=== PATIENT | female | born 1930 | race Caucasian/White ===

== ENCOUNTER 2016-07-26 07:48 | Inpatient (IN) | payer OTHER ==
[~2016-07-26] VITALS: Ht 157.5 cm; Wt 68.0 kg
--- NOTE | 2016-07-26 07:48 | NUR ---
Arrived via BLS ambulance for right knee deformity S/P fall S/T trip over dog.Patient to ER bed 5 to gown for evaluation. Side rails up. Report given to Shirley FREY.
--- NOTE | 2016-07-26 07:49 | NUR ---
ER Dr. Dominguez at bedside examining patient.
--- NOTE | 2016-07-26 07:50 | NUR ---
Patient remains in air soft splint placed by EMS to stablize site of injury.
[2016-07-26 07:55] VITALS: BP 182/71; PULSE 63; RESP 16; TEMP 97.1; O2SAT 97
[2016-07-26] MEDS ORDERED: NACL 0.9% 1,000 ML IV SCH (08:00)
[2016-07-26] MEDS ORDERED: ONDANSETRON HCL 4 MG/2 ML VIAL IVP ONE (08:00)
[2016-07-26] MEDS ORDERED: MORPHINE 4 MG/ML INJ. SYRINGE IVP ONE (08:15)
--- NOTE | 2016-07-26 08:21 | NUR ---
medicated per MD's order. scanner is not working, verified with pt's two identifier
--- NOTE | 2016-07-26 08:42 | NUR ---
# 16 FR Villalobos catheter with use of sterile technique. Immediate return of 50 cc urine noted. Bedside drainage bag placed below level of bladder. Urine sample collected and sent to lab. Pt tolerated procedure .
[2016-07-26 08:48] LABS: BASOPHILS % (AUTO) 0.2 % (0.0-2.0); EOSINOPHILS % (AUTO) 0.4 % (0.0-4.0); HEMATOCRIT 37.6 % (36-48); HEMOGLOBIN 12.3 g/dL (12.0-16.0); LYMPHOCYTES # (AUTO) 1.5 K/uL (1.0-5.5); LYMPHOCYTES % (AUTO) 13.8 % (20.5-51.5); MEAN CORPUSCULAR HEMOGLOBIN 28 pg (27-31); MEAN CORPUSCULAR HGB CONC 33 % (32-36); MEAN CORPUSCULAR VOLUME 86 fL (79.0-98.0); MONOCYTES # (AUTO) 0.8 K/uL (0.0-1.0); MONOCYTES % (AUTO) 7.1 % (1.7-9.3); NEUTROPHILS # (AUTO) 8.6 K/uL (1.8-7.7); NEUTROPHILS % (AUTO) 78.5 % (40.0-70.0); PLATELET COUNT (AUTO) 235 K/uL (130-430); RED BLOOD CELL COUNT(AUTO) 4.37 MIL/uL (4.2-6.2); RED CELL DISTRIBUTION WIDTH 15.1 % (9.0-15.0); WHITE BLOOD COUNT (AUTO) 10.9 K/uL (4.8-10.8)
[2016-07-26 08:49] LABS: BILIRUBIN,URINE NEGATIVE (NEGATIVE); BLOOD, URINE NEGATIVE (NEGATIVE); CLARITY/URINE CLEAR (CLEAR); COLOR,URINE YELLOW (YELLOW); GLUCOSE,URINE NEGATIVE (NEGATIVE); KETONES,URINE NEGATIVE (NEGATIVE); LEUKOCYTE ESTERASE ,URINE NEGATIVE (NEGATIVE); NITRITE, URINE NEGATIVE (NEGATIVE); PH,URINE 6.5 (5.0-8.0); PROTEIN URINE TRACE (NEGATIVE); UROBILINOGEN,URINE 0.2 (0.2-1.0)
[2016-07-26 08:57] LABS: ANION GAP 2 (5-15); CALCIUM 8.9 mg/dL (8.4-11.0); CHLORIDE 107 mmol/L (98-107); CREATININE 0.87 mg/dL (0.55-1.30); GLUCOSE 129 mg/dL (70-99); POTASSIUM 3.9 mmol/L (3.5-5.1); SODIUM SERUM 140 mmol/L (136-145); UREA NITROGEN, BLOOD 18 mg/dL (8-21)
[2016-07-26 09:01] LABS: ALANINE AMINOTRANSFERASE 23 U/L (12-78); ALBUMIN 3.3 g/dL (3.4-4.8); ASPARTATE AMINOTRANSFERASE 19 U/L (10-37); TOTAL BILIRUBIN 0.3 mg/dL (0.0-1.0); TOTAL PROTEIN, SERUM 7.1 g/dL (6.4-8.3)
[2016-07-26 09:02] LABS: PROTHROMBIN TIME 10.8 SECS (9.5-12.5)
[2016-07-26 09:05] LABS: BACTERIA,URINE RARE /HPF (None Seen); MUCUS,URINE 1+ /LPF (None Seen); RBC,URINE 0-3 /HPF (0-3); WBC,URINE 0-3 /HPF (0-3)
--- NOTE | 2016-07-26 09:11 | NUR ---
pain relieved,resting in bed.
--- NOTE | 2016-07-26 10:00 | NUR ---
right knee immobilizer place.pt tolerated well
--- NOTE | 2016-07-26 10:01 | NUR ---
BEAR PA, DR SALGADO SALES HUNTER FOR DR FLORES RE: FRACTURED FEMUR. SPOKE TO VILMA
--- NOTE | 2016-07-26 10:03 | NUR ---
Patient will be admitted to [facility]. Admitted to ms unit. Will go to room . Belongings list completed. Summary report printed. Report given to .
--- NOTE | 2016-07-26 10:18 | NUR ---
ADMISSION NOTE Received patient from ER via romulo, received report from NEGRITO FREY. Patient admitted with diagnosis of RIGHT FEMUR FRACTURE. Patient oriented to hospital routine, call light, toileting and safety-patient verbalized understanding.
[2016-07-26 10:32] VITALS: BP 174/72; PULSE 68; RESP 20; TEMP 98.8; O2SAT 95
[2016-07-26] MEDS ORDERED: cefTRIAXone 1 GM IVPB PREMIX 50 ML IV ONE (10:45)
[2016-07-26] MEDS ORDERED: SIMV20TA6 PO (10:45)
[2016-07-26] MEDS ORDERED: UBID1CAP53 PO (10:45)
[2016-07-26] MEDS ORDERED: METO100T3 PO (10:45)
[2016-07-26] MEDS ORDERED: MULT-1164 PO (10:45)
[2016-07-26] MEDS ORDERED: ALLO100T PO (10:45)
[2016-07-26] MEDS ORDERED: OMEG1CAP97 PO (10:45)
[2016-07-26] MEDS ORDERED: FELO5TAB4 PO (10:45)
[2016-07-26] MEDS ORDERED: HYDR12.55 (10:45)
--- NOTE | 2016-07-26 12:15 | NUR ---
NOTE PATIENT CAME FROM ER FOR RIGHT FEMUR FRACTURE FROM A MECHANICAL FALL. PATIENT IS ALERT AND ORIENTED AND ABLE TO COMMUNICATE NEEDS TO STAFF. PATIENT'S BED IS IN LOWEST POSITION AND BED ALARM IS ON. PATIENT IS EDUCATED NOT TO GET UP UNASSISTED. CALL LIGHT IS WITHIN IN REACH AND ADMISSION WAS COMPLETED. WILL CONTINUE TO MONITOR.
[2016-07-26] MEDS: D5NS 1,000 ML IV SCH (12:22)
[2016-07-26] MEDS ORDERED: ENOXAPARIN SODIUM 40 MG/0.4 ML SYRINGE SUBCUT ONE (14:15)
--- NOTE | 2016-07-26 14:45 | NUR ---
NOTE DR WILEY WAS IN TO SEE THE PATIENT AND WANTS TO HAVE TO SURGERY TOMORROW AROUND NOON. PATIENT IS AWARE AND IS ABLE TO EAT UNTIL MIDNIGHT. CALL LIGHT IS WITHIN REACH. NO NOTED COMPLAINTS OF PAIN, NO NOTED DISTRESS, DISCOMFORT OR SOB. WILL CONTINUE TO MONITOR.
--- NOTE | 2016-07-26 15:02 | NUR ---
CALLED ATTENDING MD DR CONNOR, RE: DIET ORDER. SPOKE TO GRAHAM
[2016-07-26 16:40] VITALS: BP 155/75; PULSE 71; RESP 16; TEMP 98.8; O2SAT 95
--- NOTE | 2016-07-26 17:00 | NUR ---
NOTE PATIENT IS RESTING IN BED COMFORTABLY WITH NO COMPLAINTS OF PAIN, NO NOTED DISTRESS, DISCOMFORT OR SOB. BED IS IN LOWEST POSITION AND CALL LIGHT IS WITHIN REACH. BED ALARM IS ON AND WILL CONTINUE TO MONITOR.
--- NOTE | 2016-07-26 18:55 | NUR ---
CLOSING NOTE PATIENT IS RESTING IN BED COMFORTABLY WITH NO COMPLAINTS OF PAIN, NO NOTED DISTRESS, DISCOMFORT OR SOB. PATIENT IS AWARE OF SURGERY TOMORROW AND KNOWS THAT SHE NEEDS TO BE NPO AFTER MIDNIGHT. CALL LIGHT IS WITHIN REACH AND BED ALARM IS ON AND WILL GIVE REPORT TO NIGHT NURSE
[2016-07-26 20:02] VITALS: BP 135/64; PULSE 69; RESP 18; TEMP 98.4; O2SAT 95
--- NOTE | 2016-07-26 20:10 | NUR ---
Opening Note Report received from the day shift RN. Patient is in stable condition. Has a fractured right femur with immobilizer on. Call light is within reach. Instructed to use it whenever in need of assistance. IV is on the left wrist running D5NS@70ml/hr. Instructed to please call RN when in need of pain medication. Will get order from MD upon patient's request.
--- NOTE | 2016-07-26 23:10 | NUR ---
Spoke with Spoke with Dr. Ferguson, who is covering for Dr. Garcia. Received an order for Morhpine 2mg IV qh4 PRN for pain.
[2016-07-26] MEDS: MORPHINE 2 MG/ML INJ. SYRINGE IVP PRN (23:26)
--- NOTE | 2016-07-26 23:35 | NUR ---
Pain medication Medicated the patient with Morphine 2mg IVP for 6/10 right leg pain. Will reassess.
--- NOTE | 2016-07-27 00:31 | NUR ---
Rounds Patient is currently resting in bed. Pain level is currently 3/10 on the right leg. Call light is within reach. Instructed to use it whenever in need of assistance.
--- NOTE | 2016-07-27 02:38 | NUR ---
Rounds Patient is currently sleeping in bed. No signs of distress noted. Call light is within reach.
[2016-07-27] MEDS: D5NS 1,000 ML IV SCH (02:59)
--- NOTE | 2016-07-27 04:37 | NUR ---
Rounds Patient is resting in bed. No signs of distress noted. Call light is within reach.
[2016-07-27 04:42] VITALS: BP 140/72; PULSE 72; RESP 17; TEMP 98.6; O2SAT 98
[2016-07-27] MEDS: MORPHINE 2 MG/ML INJ. SYRINGE IVP PRN ×2 (05:45→18:44)
--- NOTE | 2016-07-27 06:25 | NUR ---
Closing Note Patient is currently resting in bed. IV is on the LAC 20g running D5NS@70ml/hr. Villalobos catheter is draining yellow, clear urine. Patient is scheduled for surgery today at 1115. Patient is aware and was advised not to drink or eat anything. Will give report to the oncoming shift.
[2016-07-27 08:00] VITALS: BP 151/79; PULSE 75; RESP 18; TEMP 99; O2SAT 95
--- NOTE | 2016-07-27 08:00 | NUR ---
NOTE PT RESTING IN BED WITH RIGHT LEG IMMOBILIZER. IV IN LEFT HAND INTACT AND PATENT AT THIS TIME INFUSING IVF'S. TELE UNIT ATTACHED AND TRANSMITTING WELL. PT HAS THRASHER CATHETER INTACT AND DRAINING WELL. NO SOB/RESP DISTRESS OR DISCOMFORT NOTED AT THIS TIME. PT HAS BEEN NPO SINCE MIDNIGHT. NO NEEDS NOTED. CALL LIGHT WITHIN REACH.
--- NOTE | 2016-07-27 08:29 | NUR ---
Nutrition Update Ozzie Scale 14 noted. Pt admitted for femur fracture. Diet: NPO BMI: 27.4 kg/m2 RD to follow per nutrition care standards.
[2016-07-27] MEDS: SIMVASTATIN 20 MG TABLET PO SCH (09:00)
[2016-07-27] MEDS: FELODIPINE 5 MG TAB.SR.24H (PLENDIL) PO SCH (09:00)
[2016-07-27] MEDS ORDERED: POLYMYXIN 500,000/BACIT.10,000 UNITS in NS IRR 1 L IR ONE ×2 (10:42→13:00)
[2016-07-27] MEDS ORDERED: BUPIVACAINE /EPINEPHRINE/PF 0.5% 30 ML VIAL INJ ONE (10:46)
[2016-07-27] MEDS ORDERED: MIDAZOLAM HCL 5 MG/5 ML VIAL IVP ONE (10:46)
[2016-07-27] MEDS ORDERED: fentaNYL CITRATE/PF 100 MCG/2 ML AMP IVP ONE (10:46)
[2016-07-27] MEDS ORDERED: KETOROLAC TROMETHAMINE 30 MG VIAL IVP ONE (10:46)
[2016-07-27] MEDS ORDERED: SEVOFLURANE 15 MIN GAS INH ONE (10:46)
[2016-07-27] MEDS ORDERED: PROPOFOL 200MG/ 20ML VIAL (DIPRIVAN) IV ONE (10:46)
[2016-07-27] MEDS ORDERED: VANCOMYCIN HCL 1000 MG/VIAL IV ONE (10:46)
[2016-07-27] MEDS ORDERED: LR 1,000 ML IV.SOLN IV ONE (10:46)
[2016-07-27] MEDS ORDERED: ROCURONIUM BROMIDE 10 MG/ML (ZEMURON) IV ONE (10:46)
[2016-07-27] MEDS ORDERED: CEFAZOLIN 2 GM IVPB PREMIX 50 ML IV ONE (10:46)
--- NOTE | 2016-07-27 10:50 | NUR ---
NOTE PT WAS GIVEN CHG BATH AROUND 10AM. PT NOW OFF THE FLOOR VIA BED TO SURGERY.
[2016-07-27] MEDS ORDERED: METOCLOPRAMIDE HCL 10 MG/2 ML VIAL ONE (11:35)
[2016-07-27] MEDS ORDERED: LR 1,000 ML IV ONE (12:21)
[2016-07-27 12:29] VITALS: BP 181/77; PULSE 70; RESP 17; TEMP 98.9; O2SAT 97
[2016-07-27] MEDS ORDERED: NALBUPHINE HCL 10 MG/ML AMP IVP PRN (12:30)
[2016-07-27] MEDS ORDERED: fentaNYL CITRATE/PF 100 MCG/2 ML AMP IVP PRN (12:30)
[2016-07-27] MEDS ORDERED: DIPHENHYDRAMINE INJ 50 MG/ML VIAL IVP PRN (12:30)
[2016-07-27] MEDS ORDERED: ONDANSETRON HCL 4 MG/2 ML VIAL IVP PRN ×2 (12:30)
[2016-07-27] MEDS ORDERED: NALOXONE HCL 0.4 MG/ML AMP (NARCAN) IVP PRN (12:30)
[2016-07-27] MEDS ORDERED: ePHEDrine sulfate 50 MG/ML VIAL IVP PRN (12:30)
[2016-07-27 14:50] VITALS: BP 141/53; PULSE 68; PULSE 69; RESP 16; RESP 18; TEMP 97.4; O2SAT 93; O2SAT 94
--- NOTE | 2016-07-27 15:08 | NUR ---
NOTE PT ARRIVED BACK TO FLOOR AT 1450 VIA BED. NO O2 OR SOB/RESP DISTRESS OR RIGHT LEG PAIN/DISCOMFORT NOTED AT THIS TIME. RIGHT LEG DRESSING CDI WITH IMMOBILIZER ON AT THIS TIME. PT HAS HEMOVAC FROM RIGHT LEG INCISION SITE. THRASHER CATHETER INTACT AND DRAINING WELL AT THIS TIME. IVF'S INFUSING THROUGH LEFT HAND IV SITE. PAIN AT 3/10 ON PAIN SCALE OF 0/10. PT HAS LEFT LEG SCD ON AT THIS TIME. PT'S FAMILY CAME TO BEDSIDE AT THIS TIME. PT IS AAOX4 AT THIS TIME. CALL LIGHT WITHIN REACH.
--- NOTE | 2016-07-27 18:00 | NUR ---
NOTE PT RESTING IN BED DRINKING HER CHICKEN BROTH. NO N/V NOTED AT THIS TIME. TOLERATING BROTH WELL. PT DID NOT WANT ANYTHING ELSE AT THIS TIME. RIGHT LEG DRESSING CDI AND RIGHT LEG IN BRACE. NEURO CHECKS IN RIGHT FOOT WNL ALL SHIFT. PEDAL PULSES PALPABLE. IVF'S INFUSING THROUGH LEFT AC IV SITE. NO NEEDS NOTED. NO SOB/RESP DISTRESS NOTED. PT WAS MAINTAINED WITH SAFETY PRECAUTIONS ALL SHIFT. CALL LIGHT WITHIN REACH.
[2016-07-27 18:29] VITALS: BP 141/69; PULSE 82; RESP 16; TEMP 99.3; O2SAT 95
[2016-07-27 20:03] VITALS: BP 138/71; PULSE 95; RESP 18; TEMP 99.8; O2SAT 94
--- NOTE | 2016-07-27 20:03 | NUR ---
Opening Note Report received from the day shift RN. Patient is in stable condition. Patient stated IV on left AC is leaking is concerned about not receiving her pain medication administered by the day shift RN. Will restart a new IV and will follow up with MD regarding a one time dose of pain medication. Right leg dressing and immobilizer are in place. Hemovac is draining bloody drainage. Pulses are palpable on the right foot patient is able to move all of her toes on the right foot.
[2016-07-27] MEDS ORDERED: MORPHINE 2 MG/ML INJ. SYRINGE IVP ONE (21:45)
[2016-07-27] MEDS: ceFAZolin SODIUM 2 GM in D5W 100 ML IV SCH (21:56)
--- NOTE | 2016-07-27 22:10 | NUR ---
Rounds Patient is resting in bed. New IV is on the right hand 22g. Medicated with a one time dose of Morphine 2mg. Will reassess.
[2016-07-28] VITALS: BP_SYST 132; BP_SYST 138; BP_DIAS 72; BP_DIAS 78; PULSE 89; PULSE 92; RESP 17; RESP 18; TEMP 98.9; TEMP 99.2; O2SAT 95; O2SAT 96
--- NOTE | 2016-07-28 00:15 | NUR ---
Rounds Patient is resting in bed. No signs of distress noted. Call light is within reach. Instructed to use it whenever in need of assistance.
--- NOTE | 2016-07-28 02:10 | NUR ---
Rounds Patient is sleeping in bed. Call light is within reach.
[2016-07-28] MEDS: MORPHINE 2 MG/ML INJ. SYRINGE IVP PRN (03:33)
[2016-07-28 04:00] VITALS: BP 132/78; PULSE 89; RESP 17; TEMP 99.2; O2SAT 96
--- NOTE | 2016-07-28 04:30 | NUR ---
Rounds Patient is currently sleeping in bed. No signs of distress noted. Call light is within reach.
[2016-07-28] MEDS: D5NS 1,000 ML IV SCH ×2 (05:51→06:24)
[2016-07-28] MEDS: ceFAZolin SODIUM 2 GM in D5W 100 ML IV SCH (05:53)
--- NOTE | 2016-07-28 06:20 | NUR ---
Closing Note Patient is in stable condition. IV is on the right hand running D5NS@70ml/hr. Call light is within reach. Right lower extremity hemovac is draining bloody drainage. Villalobos catheter is drainage yellow urine. Will endorse to day shift to follow up with a diet order.
[2016-07-28 07:32] LABS: ALANINE AMINOTRANSFERASE 21 U/L (12-78); ALBUMIN 2.6 g/dL (3.4-4.8); ANION GAP 7 (5-15); ASPARTATE AMINOTRANSFERASE 46 U/L (10-37); CALCIUM 8.6 mg/dL (8.4-11.0); CHLORIDE 103 mmol/L (98-107); CREATININE 0.73 mg/dL (0.55-1.30); GLUCOSE 90 mg/dL (70-99); POTASSIUM 4.1 mmol/L (3.5-5.1); SODIUM SERUM 137 mmol/L (136-145); TOTAL BILIRUBIN 0.4 mg/dL (0.0-1.0); UREA NITROGEN, BLOOD 9 mg/dL (8-21)
[2016-07-28 08:00] VITALS: BP 132/82; PULSE 82; RESP 14; TEMP 97.3; O2SAT 99
[2016-07-28 08:24] LABS: BASOPHILS # (AUTO) 0.1 K/uL (0.0-0.2); BASOPHILS % (AUTO) 0.4 % (0.0-2.0); EOSINOPHILS % (AUTO) 0.3 % (0.0-4.0); HEMATOCRIT 29.1 % (36-48); HEMOGLOBIN 9.8 g/dL (12.0-16.0); LYMPHOCYTES # (AUTO) 1.3 K/uL (1.0-5.5); LYMPHOCYTES % (AUTO) 8.2 % (20.5-51.5); MEAN CORPUSCULAR HEMOGLOBIN 28 pg (27-31); MEAN CORPUSCULAR HGB CONC 34 % (32-36); MEAN CORPUSCULAR VOLUME 84 fL (79.0-98.0); MONOCYTES # (AUTO) 1.1 K/uL (0.0-1.0); MONOCYTES % (AUTO) 7.4 % (1.7-9.3); NEUTROPHILS # (AUTO) 12.9 K/uL (1.8-7.7); NEUTROPHILS % (AUTO) 83.7 % (40.0-70.0); PLATELET COUNT (AUTO) 226 K/uL (130-430); RED BLOOD CELL COUNT(AUTO) 3.47 MIL/uL (4.2-6.2); RED CELL DISTRIBUTION WIDTH 15.3 % (9.0-15.0)
[2016-07-28 08:25] LABS: WHITE BLOOD COUNT (AUTO) 15.4 K/uL (4.8-10.8)
[2016-07-28] MEDS: FELODIPINE 5 MG TAB.SR.24H (PLENDIL) PO SCH (08:30)
[2016-07-28] MEDS: SIMVASTATIN 20 MG TABLET PO SCH (08:30)
[2016-07-28] MEDS: ENOXAPARIN SODIUM 40 MG/0.4 ML SYRINGE SUBCUT SCH (08:30)
--- NOTE | 2016-07-28 08:30 | NUR ---
DR DA SILVA IN TO SEE PATIENT. ORDERS FOR CLEAR LIQUID DIET GIVEN
--- NOTE | 2016-07-28 09:51 | NUR ---
PATIENT IS EATING CLEAR LIQUID BREAKFAST TRAY
[2016-07-28] MEDS ORDERED: ACETAMINOPHEN 325 MG TABLET PO PRN (10:00)
--- NOTE | 2016-07-28 10:17 | NUR ---
DR WILEY IN TO SEE PATIENT. HEMOVAC REMOVED. PATIENT STARTED ON ORAL PAINKILLERS RATHER THAN IV. PLAN TO GET PT UP AND OOB WITH PT.
[2016-07-28] MEDS ORDERED: OXYCODONE/ACETAMINOPHEN 5-325 TABLET PO PRN (10:30)
[2016-07-28] MEDS: OXYCODONE/ACETAMINOPHEN 5-325 TABLET PO PRN ×2 (10:48→20:30)
--- NOTE | 2016-07-28 11:30 | NUR ---
FAMILY AT BEDSIDE. PATIENT REPORTS DECREASED PAIN AFTER PERCOCET ADMINISTRATION
--- NOTE | 2016-07-28 11:58 | NUR ---
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 DR DA SILVA ON UNIT AND INFORMED. NO ORDERS GIVEN. PATIENT PLACED ON CONTACT ISOLATION PRECAUTIONS
[2016-07-28 12:23] VITALS: BP 132/56; PULSE 106; RESP 17; TEMP 99; O2SAT 94
--- NOTE | 2016-07-28 12:30 | NUR ---
PATIENT GIVEN CLEAR LIQUID LUNCH TRAY. TOLERATED WELL.
--- NOTE | 2016-07-28 15:35 | NUR ---
PATIENT IS RESTING CALMLY IN BED. STATES PAIN IS ALMOST NONEXISTENT.
[2016-07-28 16:13] VITALS: BP 100/52; PULSE 66; RESP 17; TEMP 98.6; O2SAT 94
--- NOTE | 2016-07-28 20:00 | NUR ---
ROUNDS PATIENT AWAKE, VITALS STABLE, DENIES ANY PAIN AND DISCOMFORT AT THIS TIME. ASSESSMENT DONE AND DOCUMENTED. SEE FLOWSHEET. NEEDS ATTENDED TO. CALL LIGHT PLACED WITH PATIENT.
--- NOTE | 2016-07-28 21:00 | NUR ---
MEDICATIONS DUE MEDICATIONS GIVEN SCHEDULED. WILL CONTINUE TO MONITOR.
[2016-07-29] VITALS (7 sets, daily range): BP systolic 108–124; BP diastolic 56–74; PULSE 83–110; RESP 16–22; TEMP 98–101.3; O2SAT 92–93
--- NOTE | 2016-07-29 | NUR ---
PATIENT RESTING: Patient resting quietly. No acute distress noted. Vital signs within normal range.
--- NOTE | 2016-07-29 04:00 | NUR ---
PATIENT RESTING: Patient resting quietly. No acute distress noted. Vital signs within normal range.
[2016-07-29] MEDS: D5NS 1,000 ML IV SCH (05:04)
[2016-07-29] MEDS: OXYCODONE/ACETAMINOPHEN 5-325 TABLET PO PRN ×3 (06:50→22:07)
--- NOTE | 2016-07-29 06:50 | NUR ---
CLOSING NOTES PATIENT STABLE, ALL NEEDS ATTENDED TO, MADE CLEAN AND COMFORTABLE. CALL LIGHT PLACED WITH PATIENT.
[2016-07-29 06:51] LABS: BASOPHILS % (AUTO) 0.2 % (0.0-2.0); EOSINOPHILS # (AUTO) 0.1 K/uL (0.0-0.4); HEMOGLOBIN 8.5 g/dL (12.0-16.0); LYMPHOCYTES # (AUTO) 1.1 K/uL (1.0-5.5); LYMPHOCYTES % (AUTO) 7.9 % (20.5-51.5); MEAN CORPUSCULAR HEMOGLOBIN 28 pg (27-31); MEAN CORPUSCULAR HGB CONC 33 % (32-36); MEAN CORPUSCULAR VOLUME 87 fL (79.0-98.0); MONOCYTES # (AUTO) 1.5 K/uL (0.0-1.0); MONOCYTES % (AUTO) 10.8 % (1.7-9.3); NEUTROPHILS # (AUTO) 11.5 K/uL (1.8-7.7); NEUTROPHILS % (AUTO) 80.1 % (40.0-70.0); PLATELET COUNT (AUTO) 205 K/uL (130-430); RED CELL DISTRIBUTION WIDTH 15.5 % (9.0-15.0); WHITE BLOOD COUNT (AUTO) 14.2 K/uL (4.8-10.8)
[2016-07-29 06:57] LABS: ALANINE AMINOTRANSFERASE 23 U/L (12-78); ALBUMIN 2.2 g/dL (3.4-4.8); ANION GAP 4 (5-15); ASPARTATE AMINOTRANSFERASE 62 U/L (10-37); CALCIUM 8.3 mg/dL (8.4-11.0); CHLORIDE 104 mmol/L (98-107); GLUCOSE 107 mg/dL (70-99); POTASSIUM 3.7 mmol/L (3.5-5.1); SODIUM SERUM 139 mmol/L (136-145); TOTAL BILIRUBIN 0.4 mg/dL (0.0-1.0); TOTAL PROTEIN, SERUM 5.7 g/dL (6.4-8.3); UREA NITROGEN, BLOOD 9 mg/dL (8-21)
--- NOTE | 2016-07-29 07:30 | NUR ---
OPENING NOTE PATIENT IS ASLEEP. AWOKEN FOR ASSESSMENT. STATES PAIN IS TOLERABLE, 2/10 CURRENTLY AFTER MEDICATION ADMIN. NEW ICE PACKS PLACED ON SURGICAL SITE. DR WILEY AT BEDSIDE TO EVALUATE PATIENT. PLAN IS TO DC THRASHER CATHETER WHEN PATIENT GETS UP WITH PHYSICAL THERAPY TODAY.
[2016-07-29] MEDS: FELODIPINE 5 MG TAB.SR.24H (PLENDIL) PO SCH (09:39)
[2016-07-29] MEDS: ENOXAPARIN SODIUM 40 MG/0.4 ML SYRINGE SUBCUT SCH (09:39)
[2016-07-29] MEDS: SIMVASTATIN 20 MG TABLET PO SCH (09:40)
--- NOTE | 2016-07-29 10:23 | NUR ---
HCP/PA: Called ADRIAN Jama made her aware of discharge to SNF if ok with Surgeon. Addendum: 07/29/16 at 1449 by Monica Rivera DP Per ADRIAN Jama patient accepted [facility] assigned to room 117A RN to report [phone] Medic[facility] ambulance [phone] on will call. Addendum: 07/30/16 at 8645 by Monica Rivera DP Called ADRIAN Jama made her aware of discharge to SNF if ok with Dr Rush.
--- NOTE | 2016-07-29 12:02 | NUR ---
DR WILEY NOTIFIED OF DC PLANNIN AND THAT A BED IS AVAILABLE AT [facility]. AWAITING OK TO DC ORDERS FROM HIM.
--- NOTE | 2016-07-29 13:44 | NUR ---
PATIENT PLACED BACK IN BED BY PT
--- NOTE | 2016-07-29 14:45 | NUR ---
PHYSICAL THERAPY CO-SIGN The Physical Therapy Progress Notes documented by Forensic Economist have been reviewed. Reviewed/Co-Signed by: Meagan Connors, PT Documentation Done by: Anil Vines PTA I concur with the PM documentation of this OPERATIONS SPECIALIST. Plan: continue PT as per plan of care. Addendum: 07/29/16 at 1540 by Meagan Connors PT Amended: Links added.
--- NOTE | 2016-07-29 19:50 | NUR ---
PM ASSESSMENT PT. A/OX4, VITAL SIGNS STABLE, NO DISTRESS NOTED, DENIES PAIN, ENCOURAGED USE OF INCENTIVE SPIROMETER 10X/HR WHILE AWAKE, PT. ABLE TO DEMONSTRATE PROPER USE UP TO 1000. NOTED WITH BRACE TO RIGHT LOWER EXTREMITY ELEVATED WITH PILLOW SUPPORT, BILATERAL PEDAL PULSES PALPABLE, ABLE TO WIGGLE TOES AND FLEX AND EXTEND FEET BILATERALLY. ENCOURAGED PT. TO USE CALL LIGHT WITHIN REACH, WILL CONTINUE TO MONITOR.
--- NOTE | 2016-07-29 21:30 | NUR ---
BED BATH BED BATH DONE, NOTED WITH EXCORIATION TO BUTTOCKS AREA, MICHAEL CARE DONE, PATTED DRY WITH TOWEL, Z-GUARD APPLIED TO BUTTOCKS AREA. REPOSITIONED FOR COMFORT, PILLOW PLACED UNDER RIGHT LEG.
--- NOTE | 2016-07-29 22:07 | NUR ---
PAIN PT. C/O RIGHT LEG PAIN RATED "7/10", PERCOCET 5/325MG PO GIVEN ORDERED, VITALS SIGNS STABLE, NO DISTRESS NOTED, CALL LIGHT WITHIN REACH, WILL CONTINUE TO MONITOR.
--- NOTE | 2016-07-29 23:07 | NUR ---
PAIN REASSESSMENT PT. DENIES PAIN AT THIS TIME, PT. STATED "I FEEL BETTER." VITAL SIGNS STABLE, NO DISTRESS NOTED, CALL LIGHT WITHIN REACH, WILL CONTINUE TO MONITOR.
[2016-07-30 00:55] VITALS: BP 129/77; PULSE 96; RESP 20; TEMP 98; O2SAT 92
--- NOTE | 2016-07-30 01:00 | NUR ---
RN ROUNDS PT. RESTING QUIETLY, VITAL SIGNS STABLE, NO DISTRESS NOTED, DENIES PAIN, CALL LIGHT WITHIN REACH, WILL CONTINUE TO MONITOR.
[2016-07-30] MEDS: OXYCODONE/ACETAMINOPHEN 5-325 TABLET PO PRN ×3 (02:35→18:30)
[2016-07-30 05:00] VITALS: BP 136/67; PULSE 97; RESP 16; TEMP 98; O2SAT 92
[2016-07-30] MEDS ORDERED: ALBUTEROL SULFATE 0.083% 2.5 MG/3 ML VIAL.NEB INH PRN (05:15)
[2016-07-30] MEDS ORDERED: IPRATROPIUM BROM 0.5 MG/2.5 ML VIAL.NEB (ATROVENT) INH PRN (05:15)
[2016-07-30] MEDS ORDERED: cefTRIAXone 1 GM IVPB PREMIX 50 ML IV SCH ×2 (06:00→09:00)
[2016-07-30] MEDS: IPRATROPIUM BROM 0.5 MG/2.5 ML VIAL.NEB (ATROVENT) INH SCH ×4 (07:16→19:00)
[2016-07-30] MEDS: ALBUTEROL SULFATE 0.083% 2.5 MG/3 ML VIAL.NEB INH SCH ×4 (07:16→19:00)
[2016-07-30 08:00] VITALS: BP 125/76; PULSE 94; RESP 18; TEMP 98.4; O2SAT 94
--- NOTE | 2016-07-30 08:00 | NUR ---
OPENING NOTE PATIENT IS AWAKE, ALERT. DENIES PAIN AT THIS TIME. RECEIVING BREATHING TREATMENT. PATIENT IS COUGHING UP CLEAR THIN SECRETIONS. AFEBRILE THIS AM
--- NOTE | 2016-07-30 09:03 | NUR ---
PHYSICAL THERAPIST AT BEDSIDE WITH PATIENT
[2016-07-30] MEDS: ENOXAPARIN SODIUM 40 MG/0.4 ML SYRINGE SUBCUT SCH (09:33)
[2016-07-30] MEDS: FELODIPINE 5 MG TAB.SR.24H (PLENDIL) PO SCH (09:34)
[2016-07-30] MEDS: SIMVASTATIN 20 MG TABLET PO SCH (09:34)
--- NOTE | 2016-07-30 10:02 | NUR ---
NEW IV PLACED BY SHANE GONZALEZ RN. R FOREARM 22G.
--- NOTE | 2016-07-30 10:23 | NUR ---
DR CONNOR IN TO SEE PATIENT. CALLED DR VILLARREAL RE PULMONARY CONSULT.
[2016-07-30 10:57] LABS: ABG TOTAL HEMOGLOBIN 9.2 G/dL (12.0-18.0); BLOOD GAS BASE EXCESS 2.4 mmol/L (-3.0-3.0); BLOOD GAS PH 7.435 (7.350-7.450)
[2016-07-30 10:58] LABS: BLOOD GAS COHb% 0.5 % (0.5-1.5); BLOOD GAS HHB 7.9 % (0.0-6.0); BLOOD O2Hb% 91.6 % (94.0-97.0)
--- NOTE | 2016-07-30 11:02 | NUR ---
DR VILLARREAL IN TO SEE PATIENT. CT CHEST ORDERED
[2016-07-30 11:17] VITALS: BP 131/70; PULSE 101; RESP 18; TEMP 97.8; O2SAT 93
--- NOTE | 2016-07-30 12:00 | NUR ---
pts and son are at bedside.
--- NOTE | 2016-07-30 14:22 | NUR ---
PATIENT IS RESTING, GRANDDAUGHTER AT BEDSIDE. PATIENT DENIES PAIN AT THIS TIME.
--- NOTE | 2016-07-30 15:38 | NUR ---
PHYSICAL THERAPY CO-SIGN The Physical Therapy Progress Notes documented by Planning Coordinator have been reviewed. I CONCUR W/INDUSTRIAL ENERGY ENGINEER NOTE; CONT PER TX PLAN Reviewed/Co-Signed by: Evelyn Shaikh PT Documentation Done by: IMAN HUERTA INDUSTRIAL ENERGY ENGINEER Addendum: 07/30/16 at 1539 by Evelyn Shaikh PT Amended: Links added.
--- NOTE | 2016-07-30 15:56 | NUR ---
[facility] AMBULANCE TRANSPORT UPDATE Spoke with Darlene regarding updating will call berry picker time. supply manager time set for [phone].
[2016-07-30 16:27] VITALS: BP 121/62; PULSE 99; RESP 18; TEMP 98.8; O2SAT 93
--- NOTE | 2016-07-30 17:17 | NUR ---
INFORMED PATIENT OF PLANS TO DC TO [facility] TODAY AROUND 1900. PLAN IS TO KEEP HER ON IV ANTIBIOTICS FOR TEN DAYS.
--- NOTE | 2016-07-30 18:00 | NUR ---
REPORT CALLED TO SIMA AT [facility]
--- NOTE | 2016-07-30 18:16 | NUR ---
PATIENT CHANGED IN TO TRAVEL GOWN AND BLANKETS, THRASHER CATHETER REMOVED, PLACED IN BRIEF. READY FOR AMBULANCE PICKUP
--- NOTE | 2016-07-30 19:50 | NUR ---
PM SHIFT ASSESSMENT RECEIVED PATIENT IN BED, AOX4, VITAL SIGNS STABLE. DENIES ANY PAIN OR DISCOMFORT AT THIS TIME. ON ROOM AIR. IV LINE TO RIGHT FOREARM INTACT AND PATENT, SALINE LOCKED, NO SIGNS OF INFILTRATION NOTED. PATIENT HAS DRESSING TO RIGHT HIP CDI WITH IMMOBILIZER IN PLACE, PATIENT'S THRASHER REMOVED EARLIER BY DAY NURSE. POC DISCUSSED, PATIENT WILL BE TRANSFERRED TO [place] FOR CONTINUITY OF CARE. PATIENT VERBALIZED UNDERSTANDING. ORIENTED TO USE CALL LIGHT FOR NURSE ASSISTANCE. CALL LIGHT WITHIN REACH, FALL AND ISOLATION PRECAUTIONS IN PLACE, WILL MONITOR.
[2016-07-30 20:00] VITALS: BP 134/67; PULSE 106; RESP 20; TEMP 98.8; O2SAT 93
--- NOTE | 2016-07-30 21:57 | NUR ---
RN ROUNDS PATIENT RESTING QUIETLY, NO DISTRESS NOTED, STILL AWAITING AMBULANCE TO BE TRANSFERRED TONIGHT. PATIENT DENIES ANY PAIN OR DISCOMFORT AT THIS TIME.
--- NOTE | 2016-07-30 23:18 | NUR ---
TRANSFER Report given to medic personnel, all paper works sent with patient and all belongings. Patient in stable condition, denies any pain or discomfort at this time. Iv line intact and patent, no signs of infiltration noted.
== END 2016-07-30 23:04 | DRG 480 ==
LOC: SED 07:48 → SMU 09:15
PROVIDERS: ADMIT Internal Medicine Hospice and Palliative Medicine; ATTEND Internal Medicine Hospice and Palliative Medicine
PROC: 0QSB04Z Reposition Right Lower Femur with Internal Fixation Device, Open Approach (ICD-10-PCS; principal; 2016-07-27 11:00)
DX: M97.01XA Periprosthetic fracture around internal prosthetic right hip joint, initial encounter (principal); E43 Unspecified severe protein-calorie malnutrition; D62 Acute posthemorrhagic anemia; E78.5 Hyperlipidemia, unspecified; I10 Essential (primary) hypertension; M10.9 Gout, unspecified; D64.9 Anemia, unspecified; R50.82 Postprocedural fever; Z96.641 Presence of right artificial hip joint; W01.0XXA Fall on same level from slipping, tripping and stumbling without subsequent striking against object, initial encounter; Z96.652 Presence of left artificial knee joint; Y93.89 Activity, other specified; Y92.89 Other specified places as the place of occurrence of the external cause; Y99.8 Other external cause status; Z87.891 Personal history of nicotine dependence; Z90.710 Acquired absence of both cervix and uterus; Z22.322 Carrier or suspected carrier of Methicillin resistant Staphylococcus aureus; Z88.8 Allergy status to other drugs, medicaments and biological substances
CPT/HCPCS: 36415; 36600; 71010; 71250-TC; 72170-TC; 73564; 76001; 80053; 81000-TC; 82803-TC; 83605; 85025; 85610-TC; 85730-TC; 86886; 86900; 86901; 87040-TC; 87081; 87086; 93005; 94010; 94640; 96361; 96375; 97110-GP; 97116-GP; 97530-GP; 99285; C1713; C1776; J0690; J0696; J1650; J1885; J2250; J2270; J2405; J2704; J2765; J3010; J3370; J3490; J7030; J7042; J7060; J7120